=== PATIENT | female | born 1985 | race Caucasian/White ===

== ENCOUNTER 2017-07-24 20:48 | Emergency (ER) | payer BC ==
[~2017-07-24] VITALS: Ht 167.6 cm; Wt 74.8 kg
[~2017-07-24 20:48] MED LIST: AUGMENTIN 875 M1 TAB PO; COMPAZINE10 MG PO; DARVOCET N 1001 TAB PO
[2017-07-24] MEDS ORDERED: PERCOCET 5-3251 EACH PO (21:58)
== END 2017-07-24 23:23 | disposition home or self-care (01) ==
LOC: ED 20:48
DX: S82.891A Other fracture of right lower leg, initial encounter for closed fracture (principal); W01.0XXA Fall on same level from slipping, tripping and stumbling without subsequent striking against object, initial encounter; Y93.41 Activity, dancing; Y92.89 Other specified places as the place of occurrence of the external cause; Y99.8 Other external cause status; Z88.0 Allergy status to penicillin; Z91.040 Latex allergy status; F17.200 Nicotine dependence, unspecified, uncomplicated; F10.10 Alcohol abuse, uncomplicated; Y90.9 Presence of alcohol in blood, level not specified

== ENCOUNTER 2021-12-06 22:19 | Emergency (ER) | payer BC, OTHER ==
[~2021-12-06] VITALS: Ht 167.6 cm; Wt 83.9 kg
[~2021-12-06 22:19] MED LIST changes: +PERCOCET 5-3251 EACH PO
[2021-12-06] MEDS ORDERED: LEVOFLOXACIN500 MG PO (22:59)
[2021-12-06] MEDS ORDERED: PERCOCET 5-3251 EACH PO (22:59)
[2021-12-06] MEDS ORDERED: CORTISPORIN SUS10 ML OT (22:59)
== END 2021-12-06 23:10 | disposition home or self-care (01) ==
LOC: ED 22:19
DX: H60.92 Unspecified otitis externa, left ear (principal); Z88.0 Allergy status to penicillin; Z91.040 Latex allergy status